=== PATIENT | male | born 1980 | race Caucasian/White ===

== ENCOUNTER 2025-06-19 06:29 | Day surgery (SDC) | payer OTHER, SELFPAY | END 2025-06-19 15:15 | disposition home or self-care (01) | LOC: GI 06:29 | PROVIDERS: ATTENDING PHYSICIAN Internal Medicine | DX: Z12.11 Encounter for screening for malignant neoplasm of colon (principal); K63.5 Polyp of colon | CPT/HCPCS: 45380; 88305 ==